=== PATIENT | female | born 1975 | race Caucasian/White ===

== ENCOUNTER 2020-09-08 16:15 | Emergency (ER) | payer MEDICAID ==
[~2020-09-08] VITALS: Ht 175.3 cm; Wt 97.5 kg
[2020-09-08 17:35] VITALS: BP 157/81
--- NOTE | 2020-09-08 17:37 | NUR ---
PT ASKED TO WAIT IN ER LOBBY FOR MSE.
[2020-09-08] MEDS ORDERED: KETOROLAC 60 MG/2 ML VIAL IM ONE (17:55)
--- NOTE | 2020-09-08 18:00 | NUR ---
PT CAME IN TO ER WITH C/O LEG PAIN. PT IS A/OX4. ERMD AWARE OF STATUS. PAIN LEVEL 6/10. PT IS AMBULATORY. NO SIGN OF DISTRESS NOTED. SAFETY MEASURES IN PLACE. WILL CONTINUE TO MONITOR.
--- NOTE | 2020-09-08 18:20 | NUR ---
PT CAME BACK FROM [facility]
--- NOTE | 2020-09-08 19:15 | NUR ---
Patient discharged with v/s stable. Written and verbal after care instructions given and explained. Patient alert, oriented and verbalized understanding of instructions. Ambulatory with steady gait. All questions addressed prior to discharge. ID band removed. Patient advised to follow up with PMD. Rx of NORCO, BACTERIM WAS given. Patient educated on indication of medication including possible reaction and side effects. Opportunity to ask questions provided and answered.
[2020-09-08 19:19] VITALS: BP 157/81
== END 2020-09-08 19:10 | disposition home or self-care (01) ==
LOC: MED 16:15
DX: I87.2 Venous insufficiency (chronic) (peripheral) (principal); E11.9 Type 2 diabetes mellitus without complications; Z98.51 Tubal ligation status; Z90.49 Acquired absence of other specified parts of digestive tract
CPT/HCPCS: 93971; 96372; 99284; J1885